=== PATIENT | female | born 1960 | race Caucasian/White ===

== ENCOUNTER 2018-08-07 00:04 | Emergency (ER) | payer MEDICARE, OTHER ==
[2018-08-07] MEDS ORDERED: Sodium Chloride 0.9% 1,000 ML IV SCH (01:00)
--- NOTE | 2018-08-07 01:15 | EDM.PDOC ---
ED HPI GENERAL MEDICAL PROBLEM - General Chief Complaint: Neurological Problem Stated Complaint: FALL Time Seen by Provider: 08/07/18 00:15 Source of Information: Reports: Patient History Limitations: Reports: Altered Mental Status, Other (Patient is very confused and perseverates and does not have a consistent story) - History of Present Illness INITIAL COMMENTS - FREE TEXT/NARRATIVE: This 48-year-old woman who states she fell yesterday since his symptoms are . However I think she is confused with the dates of the patient's clinical examination I think she fell 2 days ago or more asked regarding her orientation she knew her name. But she thinks she is at "[facility]", the date is "4 something" and she does not know what date it is. Her answer for date was "I am going.. he is there." daughters name is Мария her son's name is "Lia Corea. " Friend who is a more reliable historian Denise Becerra, notes that Mary doesn' t have a son. Mary has been going with a friend named Kasey for 2 months. Denise Becerra notes that Kasey is a very nice hero, kind and pleasant. Denise notes that Mary had not consumated her marriage after 12 years with her ex- whose name is Flavio. He also was a very nice fellow and he was not abusive. Kasey is not abusive. Today, the patient's boyfriend, Kasey, after getting off work, his shift was 8 AM to 4 PM, called Rosalie to let her know that when he arrived home around 4:30 PM Mary was found partly dressed laying over the edge of the bathtub at her waist and had taken a shower and was not completely dry. She was very confused. Kasey did not know what to do. Denise instructed Bonifacio to have her come to the ED immediately. She refused to leave home. Finally Kasey became more worried around midnight and called EMS because she is so confused and not making sense. Ambulance transfered patient to the hospital. There is no history of seizure disorder, incontinence of urine, tongue biting or blood from her mouth, cognitive impairment history, almost his arms, Jacksonian Marche, recent fever or illness. - Related Data Allergies Allergy/AdvReac Type Severity Reaction Status Date / Time Unable to Assess Allergy Unverified 08/07/18 00:09 Home Meds: Home Meds . [Unable to Verify Home Med List] 08/07/18 [History] ED ROS GENERAL - Review of Systems Review Of Systems: ROS reveals no pertinent complaints other than HPI. - Physical Exam Exam: See Below Text/Narrative:: This woman is very confused. She cannot complete sentences. She articulates some normal words but not without perseverating and lacing many other very nonsensical words that are not understandable: speech apraxia and illogical neologism, and illogical statements. She is only oriented 1; speaks with run- on words. When asked what time it was, she answered "... food, it o'clock a.m., bed Last night... tried to get up to go to bed ...blowing, l, fell from period.. physical, flight, I was flying, was dark,... probe was loading, I feel car, I'm a visionary, box me..." etc." evening , a fire, Lizer, word synthesis "out of clam kine...."ezy bee... addtion 2+ equal 4 but 4+8 equals 16, could not perform subtraction. She could repeat serial digits. Her answers were bizarre. When looked at the clock she said it was 4 AM. When in fact it was 2 AM. She was unable to process any information words at times were normal and other times her speech exhibited syncretism. Exam Limited By: Other (Severe limitation any form of logical communication) General Appearance: Anxious, Moderate Distress, Other (Overweight) Eye Exam: Bilateral Eye: Abnormal EOM (EOMs normal, lids stuck together, PERRL. minimal reactivity of pupils marked scleral and conjunctival injection) Ears: Normal External Exam Nose: Normal Inspection Throat/Mouth: Normal Inspection, Normal Lips, Normal Teeth, Normal Gums, Normal Oropharynx, Normal Voice, Other (Heart dry mucosa) Head Exam: Facial Abrasions, Other (Nasal and frontal abrasion with frontal ecchymosis and swelling) Neck: Normal Inspection, Supple, Non-Tender Respiratory/Chest: No Respiratory Distress, Lungs Clear, Normal Breath Sounds, No Accessory Muscle Use, Chest Non-Tender Cardiovascular: Normal Peripheral Pulses, Regular Rate, Rhythm, No Edema, No Gallop, No JVD, No Murmur, No Rub GI/Abdominal: Normal Bowel Sounds, Soft, Non-Tender, No Organomegaly, No Distention, No Abnormal Bruit (Female) Exam: Deferred Rectal (Female) Exam: Deferred Neuro Exam (Abbreviated): Other (Disoriented oriented 1, markedly confused, uses the word synergism's, perseveration, very illogical statements and I have no understanding what she is saying) DTR: 0: Patella (R), Patella (L), Achilles (R), Achilles (L), 1+: Bicep (R) ( hypoactive), Bicep (L) Back Exam: Normal Inspection Extremities: Normal Range of Motion, No Pedal Edema, Normal Capillary Refill, Other (Marked ecchymosis and abrasions bilateral knees and elbows with abrasions dorsal PIP joints 2,3,4 left-hand. No pain with extremities decreased range of motion extremities) Psychiatric: Other (Very abnormal affect very significant confusion) Skin Exam: Other (Marked ecchymosis and abrasions bilateral knees and elbows with abrasions dorsal PIP joints 2,3,4 left-hand) Course - Vital Signs Last Recorded V/S: Last Vital Signs Temp 36.9 C 08/07/18 00:05 Pulse 85 08/07/18 00:05 Resp 18 08/07/18 00:05 BP 150/80 H 08/07/18 00:05 Pulse Ox 99 08/07/18 00:05 - Orders/Labs/Meds Orders: Active Orders 24 hr Category Date Time Status EKG Documentation Completion [RC] ASDIRECTED Care 08/07/18 00:48 Active EKG Documentation Completion [RC] ASDIRECTED Care 08/07/18 00:48 Active Cervical Spine wo Cont [CT] Stat Exams 08/07/18 00:43 Taken Head wo Cont [CT] Stat Exams 08/07/18 00:42 Ordered CULTURE BLOOD [BC] Urgent Lab 08/07/18 00:45 Received CULTURE BLOOD [BC] Urgent Lab 08/07/18 00:52 Received CULTURE URINE [RM] Urgent Lab 08/07/18 00:25 Received Sodium Chloride 0.9% [Normal Saline] 1,000 ml Med 08/07/18 01:00 Active IV ASDIRECTED Blood Culture x2 Reflex Set [OM.PC] Urgent Oth 08/07/18 01:29 Ordered EKG 12 Lead [EK] Routine Ther 08/07/18 00:48 Ordered Medication Orders Sodium Chloride (Normal Saline) 1,000 mls @ 100 mls/hr IV ASDIRECTED SOREN Last Admin: 08/07/18 01:55 Dose: 100 mls/hr Labs: Laboratory Tests 08/07/18 08/07/18 08/07/18 Range/Units 00:25 00:25 00:45 WBC (4.5-12.0) X10-3/uL RBC (3.23-5.20) x10(6)uL Hgb (11.5-15.5) g/dL Hct (30.0-51.3) % MCV (80-96) fL MCH (27.7-33.6) pg MCHC (32.2-35.4) g/dL RDW (11.5-15.5) % Plt Count (125-369) X10(3)uL MPV (7.4-10.4) fL Neut % (Auto) (46-82) % Lymph % (Auto) (13-37) % [place] % (Auto) (4-12) % Eos % (Auto) (1.0-5.0) % Baso % (Auto) (0-2) % Neut # (Auto) (1.6-8.3) # Lymph # (Auto) (0.6-5.0) # [place] # (Auto) (0.0-1.3) # Eos # (Auto) (0.0-0.8) # Baso # (Auto) (0.0-0.2) # PT (8.7-11.1) INR (0.89-1.13) APTT 23.5 L (24.4-33.2) SECONDS Sodium (135-145) mmol/L Potassium (3.5-5.3) mmol/L Chloride (100-110) mmol/L Carbon Dioxide (21-32) mmol/L BUN (7-18) mg/dL Creatinine (0.55-1.02) mg/dL Est Cr Clr Drug Dosing Estimated GFR (MDRD) (>60) BUN/Creatinine Ratio (9-20) Glucose (80-116) mg/dL Lactic Acid (0.4-2.2) mmol/L Calcium (8.6-10.2) mg/dL Magnesium (1.8-2.5) mg/dL Total Bilirubin (0.1-1.3) mg/dL AST (5-25) IU/L ALT (12-36) U/L Alkaline Phosphatase (56-112) IU/L Troponin I (<0.017-0.056) ng/mL Total Protein (6.0-8.0) g/dL Albumin (3.5-5.2) g/dL Globulin g/dL Albumin/Globulin Ratio Urine Color Yellow (YELLOW) Urine Appearance Cloudy (CLEAR) Urine pH 6.5 (5.0-6.5) Ur Specific [place] 1.020 (1.010-1.025) Urine Protein Negative (NEGATIVE) mg/dL Urine Glucose (UA) Normal (NEGATIVE) mg/dL Urine Ketones Negative (NEGATIVE) mg/dL Urine Occult Blood Moderate H (NEGATIVE) Urine Nitrite Negative (NEGATIVE) Urine Bilirubin Small H (NEGATIVE) Urine Urobilinogen Normal (NEGATIVE) mg/dL Ur Leukocyte Esterase Small H (NEGATIVE) Urine RBC 5-10 (0) Urine WBC 10-20 H (0) Ur Squamous Epith Cells Few H (NS,R,O) Urine Bacteria Moderate H (NS) Salicylates (2.8-20.0) mg/dL Urine Opiates Screen Negative (NEGATIVE) Ur Oxycodone Screen Negative (NEGATIVE) Ur Propoxyphene Screen Negative (NEGATIVE) Acetaminophen (10-30) ug/mL Ur Barbituates Screen Negative (NEGATIVE) Ur Tricyclics Screen Positive H (NEGATIVE) Ur Phencyclidine Scrn Negative (NEGATIVE) Ur Amphetamine Screen Negative (NEGATIVE) Urine MDMA Screen Negative (NEGATIVE) U Benzodiazepines Scrn Negative (NEGATIVE) U Cocaine Metab Screen Negative (NEGATIVE) U Marijuana (THC) Screen Negative (NEGATIVE) Ethyl Alcohol (<0.03) % 08/07/18 08/07/18 08/07/18 Range/Units 00:45 00:45 00:45 WBC 14.2 H (4.5-12.0) X10-3/uL RBC 4.28 (3.23-5.20) x10(6)uL Hgb 13.3 (11.5-15.5) g/dL Hct 39.4 (30.0-51.3) % MCV 92.1 (80-96) fL MCH 31.1 (27.7-33.6) pg MCHC 33.8 (32.2-35.4) g/dL RDW 12.7 (11.5-15.5) % Plt Count 148 (125-369) X10(3)uL MPV 7.9 (7.4-10.4) fL Neut % (Auto) 80.0 (46-82) % Lymph % (Auto) 12.9 L (13-37) % [place] % (Auto) 6.9 (4-12) % Eos % (Auto) 0 L (1.0-5.0) % Baso % (Auto) 0 (0-2) % Neut # (Auto) 11.4 H (1.6-8.3) # Lymph # (Auto) 1.8 (0.6-5.0) # [place] # (Auto) 1.0 (0.0-1.3) # Eos # (Auto) 0.0 (0.0-0.8) # Baso # (Auto) 0.0 (0.0-0.2) # PT 12.6 H (8.7-11.1) INR 1.30 H (0.89-1.13) APTT (24.4-33.2) SECONDS Sodium 136 (135-145) mmol/L Potassium 5.6 H (3.5-5.3) mmol/L Chloride 98 L (100-110) mmol/L Carbon Dioxide 31 (21-32) mmol/L BUN 48 H (7-18) mg/dL Creatinine 2.6 H* (0.55-1.02) mg/dL Est Cr Clr Drug Dosing TNP Estimated GFR (MDRD) 19 L (>60) BUN/Creatinine Ratio 18.5 (9-20) Glucose 253 H (80-116) mg/dL Lactic Acid (0.4-2.2) mmol/L Calcium 9.7 (8.6-10.2) mg/dL Magnesium (1.8-2.5) mg/dL Total Bilirubin 1.3 (0.1-1.3) mg/dL AST 60 H (5-25) IU/L ALT 78 H (12-36) U/L Alkaline Phosphatase 186 H (56-112) IU/L Troponin I (<0.017-0.056) ng/mL Total Protein 7.1 (6.0-8.0) g/dL Albumin 3.5 (3.5-5.2) g/dL Globulin 3.6 g/dL Albumin/Globulin Ratio 1.0 Urine Color (YELLOW) Urine Appearance (CLEAR) Urine pH (5.0-6.5) Ur Specific [place] (1.010-1.025) Urine Protein (NEGATIVE) mg/dL Urine Glucose (UA) (NEGATIVE) mg/dL Urine Ketones (NEGATIVE) mg/dL Urine Occult Blood (NEGATIVE) Urine Nitrite (NEGATIVE) Urine Bilirubin (NEGATIVE) Urine Urobilinogen (NEGATIVE) mg/dL Ur Leukocyte Esterase (NEGATIVE) Urine RBC (0) Urine WBC (0) Ur Squamous Epith Cells (NS,R,O) Urine Bacteria (NS) Salicylates (2.8-20.0) mg/dL Urine Opiates Screen (NEGATIVE) Ur Oxycodone Screen (NEGATIVE) Ur Propoxyphene Screen (NEGATIVE) Acetaminophen (10-30) ug/mL Ur Barbituates Screen (NEGATIVE) Ur Tricyclics Screen (NEGATIVE) Ur Phencyclidine Scrn (NEGATIVE) Ur Amphetamine Screen (NEGATIVE) Urine MDMA Screen (NEGATIVE) U Benzodiazepines Scrn (NEGATIVE) U Cocaine Metab Screen (NEGATIVE) U Marijuana (THC) Screen (NEGATIVE) Ethyl Alcohol (<0.03) % 08/07/18 08/07/18 08/07/18 Range/Units 00:45 00:45 00:45 WBC (4.5-12.0) X10-3/uL RBC (3.23-5.20) x10(6)uL Hgb (11.5-15.5) g/dL Hct (30.0-51.3) % MCV (80-96) fL MCH (27.7-33.6) pg MCHC (32.2-35.4) g/dL RDW (11.5-15.5) % Plt Count (125-369) X10(3)uL MPV (7.4-10.4) fL Neut % (Auto) (46-82) % Lymph % (Auto) (13-37) % [place] % (Auto) (4-12) % Eos % (Auto) (1.0-5.0) % Baso % (Auto) (0-2) % Neut # (Auto) (1.6-8.3) # Lymph # (Auto) (0.6-5.0) # [place] # (Auto) (0.0-1.3) # Eos # (Auto) (0.0-0.8) # Baso # (Auto) (0.0-0.2) # PT (8.7-11.1) INR (0.89-1.13) APTT (24.4-33.2) SECONDS Sodium (135-145) mmol/L Potassium (3.5-5.3) mmol/L Chloride (100-110) mmol/L Carbon Dioxide (21-32) mmol/L BUN (7-18) mg/dL Creatinine (0.55-1.02) mg/dL Est Cr Clr Drug Dosing Estimated GFR (MDRD) (>60) BUN/Creatinine Ratio (9-20) Glucose (80-116) mg/dL Lactic Acid (0.4-2.2) mmol/L Calcium (8.6-10.2) mg/dL Magnesium (1.8-2.5) mg/dL Total Bilirubin (0.1-1.3) mg/dL AST (5-25) IU/L ALT (12-36) U/L Alkaline Phosphatase (56-112) IU/L Troponin I < 0.017 L (<0.017-0.056) ng/mL Total Protein (6.0-8.0) g/dL Albumin (3.5-5.2) g/dL Globulin g/dL Albumin/Globulin Ratio Urine Color (YELLOW) Urine Appearance (CLEAR) Urine pH (5.0-6.5) Ur Specific [place] (1.010-1.025) Urine Protein (NEGATIVE) mg/dL Urine Glucose (UA) (NEGATIVE) mg/dL Urine Ketones (NEGATIVE) mg/dL Urine Occult Blood (NEGATIVE) Urine Nitrite (NEGATIVE) Urine Bilirubin (NEGATIVE) Urine Urobilinogen (NEGATIVE) mg/dL Ur Leukocyte Esterase (NEGATIVE) Urine RBC (0) Urine WBC (0) Ur Squamous Epith Cells (NS,R,O) Urine Bacteria (NS) Salicylates < 2.0 L (2.8-20.0) mg/dL Urine Opiates Screen (NEGATIVE) Ur Oxycodone Screen (NEGATIVE) Ur Propoxyphene Screen (NEGATIVE) Acetaminophen (10-30) ug/mL Ur Barbituates Screen (NEGATIVE) Ur Tricyclics Screen (NEGATIVE) Ur Phencyclidine Scrn (NEGATIVE) Ur Amphetamine Screen (NEGATIVE) Urine MDMA Screen (NEGATIVE) U Benzodiazepines Scrn (NEGATIVE) U Cocaine Metab Screen (NEGATIVE) U Marijuana (THC) Screen (NEGATIVE) Ethyl Alcohol < 0.03 (<0.03) % 08/07/18 08/07/18 08/07/18 Range/Units 00:45 00:45 00:45 WBC (4.5-12.0) X10-3/uL RBC (3.23-5.20) x10(6)uL Hgb (11.5-15.5) g/dL Hct (30.0-51.3) % MCV (80-96) fL MCH (27.7-33.6) pg MCHC (32.2-35.4) g/dL RDW (11.5-15.5) % Plt Count (125-369) X10(3)uL MPV (7.4-10.4) fL Neut % (Auto) (46-82) % Lymph % (Auto) (13-37) % [place] % (Auto) (4-12) % Eos % (Auto) (1.0-5.0) % Baso % (Auto) (0-2) % Neut # (Auto) (1.6-8.3) # Lymph # (Auto) (0.6-5.0) # [place] # (Auto) (0.0-1.3) # Eos # (Auto) (0.0-0.8) # Baso # (Auto) (0.0-0.2) # PT (8.7-11.1) INR (0.89-1.13) APTT (24.4-33.2) SECONDS Sodium (135-145) mmol/L Potassium (3.5-5.3) mmol/L Chloride (100-110) mmol/L Carbon Dioxide (21-32) mmol/L BUN (7-18) mg/dL Creatinine (0.55-1.02) mg/dL Est Cr Clr Drug Dosing Estimated GFR (MDRD) (>60) BUN/Creatinine Ratio (9-20) Glucose (80-116) mg/dL Lactic Acid 3.9 H (0.4-2.2) mmol/L Calcium (8.6-10.2) mg/dL Magnesium 2.6 H (1.8-2.5) mg/dL Total Bilirubin (0.1-1.3) mg/dL AST (5-25) IU/L ALT (12-36) U/L Alkaline Phosphatase (56-112) IU/L Troponin I (<0.017-0.056) ng/mL Total Protein (6.0-8.0) g/dL Albumin (3.5-5.2) g/dL Globulin g/dL Albumin/Globulin Ratio Urine Color (YELLOW) Urine Appearance (CLEAR) Urine pH (5.0-6.5) Ur Specific [place] (1.010-1.025) Urine Protein (NEGATIVE) mg/dL Urine Glucose (UA) (NEGATIVE) mg/dL Urine Ketones (NEGATIVE) mg/dL Urine Occult Blood (NEGATIVE) Urine Nitrite (NEGATIVE) Urine Bilirubin (NEGATIVE) Urine Urobilinogen (NEGATIVE) mg/dL Ur Leukocyte Esterase (NEGATIVE) Urine RBC (0) Urine WBC (0) Ur Squamous Epith Cells (NS,R,O) Urine Bacteria (NS) Salicylates (2.8-20.0) mg/dL Urine Opiates Screen (NEGATIVE) Ur Oxycodone Screen (NEGATIVE) Ur Propoxyphene Screen (NEGATIVE) Acetaminophen < 2 L (10-30) ug/mL Ur Barbituates Screen (NEGATIVE) Ur Tricyclics Screen (NEGATIVE) Ur Phencyclidine Scrn (NEGATIVE) Ur Amphetamine Screen (NEGATIVE) Urine MDMA Screen (NEGATIVE) U Benzodiazepines Scrn (NEGATIVE) U Cocaine Metab Screen (NEGATIVE) U Marijuana (THC) Screen (NEGATIVE) Ethyl Alcohol (<0.03) % Meds: Medications Generic Name Dose Route Start Last Admin Trade Name Freq PRN Reason Stop Dose Admin Sodium Chloride 1,000 mls @ 100 mls/hr 08/07/18 01:00 08/07/18 01:55 Normal Saline IV 100 mls/hr ASDIRECTED [facility] Administration - Radiology Interpretation Free Text/Narrative:: Negative CT scan and negative C-spine scale Departure - Departure Time of Disposition: 02:00 ( confusion, neologisms, illogical thought process probably secondary to metabolic encephalopthy or hypoxia from her fall over the edge of the tub.. History of falling. Marked conjunctival scleral injection secondary to increased pressure with body bent over the tub after ways lately. Timetime unknown. Lower abdominal wall ribbons of erythema, abrasions, ecchymosis and ulceration of the dermis below the level of the bilateral anterior iliac spines secondary to laying on the edge of the bathtub for long time. Duration of this laying over the tub was indeterminate. Presumed flexion and pressure on the abdomen for a prolong time (possible 4-8 hours) and this could possibly account for severe scleral injection and eyelid edema and, the bilateral ecchymosis eye lids and orbital dermis, occular edema and scleral injection from and increased ophthalmic pressure and orbital pressure. She has bilateral knee and elbow abrasions ecchymosises which attest to her frequent falling. The age of these lesions indeterminate. No history or allusion to foul play; rule out subdural, pseudo hydrocephalus given to CAT scan of the head was negative. Rule out seizure disorder. No evidence for FALL INTERN bleed. Rule out psychosocial disorder. She has history of depression bipolar issues and anxiety , ro insulin misuse with hypoglycemia, ro suicidal attempt, drug noncompliance, r/o psychotic break, he has history per report [facility] 07/10/18 of: peripheral neuropathy with type 2 diabetes, status post gastric sleeve surgery 2016, GERD, recent treatment for hypokalemia hypomagnesemia hypocalcemia, with negative stool cultures and documented CT of the abdomen previous cholecystectomy gastroplasty and Herrmann. Potassium at that time was Low and Her Calcium 6.1 Phosphate 4.2. transfer discussed with Dr. Lele Reyes ED.) Disposition: DC/Tfer to Acute Hospital 02 Condition: Poor Clinical Impression: Falling episodes Contusion of elbow Qualifiers: Encounter type: subsequent encounter Laterality: unspecified laterality Qualified Code(s): S50.00XD - Contusion of unspecified elbow, subsequent encounter Contusion of knee Qualifiers: Encounter type: subsequent encounter Laterality: unspecified laterality Qualified Code(s): S80.00XD - Contusion of unspecified knee, subsequent encounter Concussion Qualifiers: Encounter type: initial encounter Loss of consciousness presence/duration: with LOC of unspecified duration Qualified Code(s): S06.0X9A - Concussion with loss of consciousness of unspecified duration, initial encounter - Discharge Information *PRESCRIPTION DRUG MONITORING PROGRAM REVIEWED*: Not Applicable *COPY OF PRESCRIPTION DRUG MONITORING REPORT IN PATIENT ARIADNE: Not Applicable Forms: ED Department Discharge - My Orders Last 24 Hours: My Active Orders 08/07/18 00:25 CULTURE URINE [RM] Urgent 08/07/18 00:42 Head wo Cont [CT] Stat 08/07/18 00:43 Cervical Spine wo Cont [CT] Stat 08/07/18 00:45 CULTURE BLOOD [BC] Urgent 08/07/18 00:48 EKG Documentation Completion [RC] ASDIRECTED EKG Documentation Completion [RC] ASDIRECTED EKG 12 Lead [EK] Routine 08/07/18 00:52 CULTURE BLOOD [BC] Urgent 08/07/18 01:00 Sodium Chloride 0.9% [Normal Saline] 1,000 ml IV ASDIRECTED 08/07/18 01:29 Blood Culture x2 Reflex Set [OM.PC] Urgent - Assessment/Plan Last 24 Hours: My Active Orders 08/07/18 00:25 CULTURE URINE [RM] Urgent 08/07/18 00:42 Head wo Cont [CT] Stat 08/07/18 00:43 Cervical Spine wo Cont [CT] Stat 08/07/18 00:45 CULTURE BLOOD [BC] Urgent 08/07/18 00:48 EKG Documentation Completion [RC] ASDIRECTED EKG Documentation Completion [RC] ASDIRECTED EKG 12 Lead [EK] Routine 08/07/18 00:52 CULTURE BLOOD [BC] Urgent 08/07/18 01:00 Sodium Chloride 0.9% [Normal Saline] 1,000 ml IV ASDIRECTED 08/07/18 01:29 Blood Culture x2 Reflex Set [OM.PC] Urgent
== END 2018-08-07 03:40 ==
LOC: FB.ED 00:04
DX: S06.0X9A Concussion with loss of consciousness of unspecified duration, initial encounter (principal); N17.9 Acute kidney failure, unspecified; S00.83XA Contusion of other part of head, initial encounter; S50.02XA Contusion of left elbow, initial encounter; S50.01XA Contusion of right elbow, initial encounter; S80.02XA Contusion of left knee, initial encounter; S80.01XA Contusion of right knee, initial encounter; S00.31XA Abrasion of nose, initial encounter; S60.512A Abrasion of left hand, initial encounter; W19.XXXA Unspecified fall, initial encounter
CPT/HCPCS: 36410; 36415; 70450; 72125; 80053; 80305; 81001; 83605; 83735; 84484; 85025; 85610; 85730; 87040; 87086; 87088; 87186; 93005; 96360; 96361; 99285; G0480; J7030